=== PATIENT | female | born 1965 | race Hispanic/Latino ===

== ENCOUNTER → 2024-06-19 | Outpatient (CLI) | payer BC | END | disposition home or self-care (01) | LOC: SHCH 15:10 | PROVIDERS: ATTEND Student in an Organized Health Care Education/Training Program | DX: I34.0 Nonrheumatic mitral (valve) insufficiency (principal); I34.1 Nonrheumatic mitral (valve) prolapse; I25.5 Ischemic cardiomyopathy | CPT/HCPCS: 93306 ==